=== PATIENT | female | born 1955 | race Caucasian/White ===

== ENCOUNTER 2016-04-17 06:01 | Day surgery (SDC) | payer BC ==
[~2016-04-17 06:01] MED LIST: CHLORHEXIDINE GLUC HIBICLENS 118 ML BTL TP ONE
[2016-04-17] MEDS ORDERED: LIDOCAINE 1% 5 ML SDV ID PRN (06:50)
[2016-04-17] MEDS ORDERED: LR 1,000 ML IV ONE (06:50)
[2016-04-17 07:06] LABS: ANION GAP 13 mEq/L (8-16); CALCIUM 9.5 mg/dL (8.5-10.4); CARBON DIOXIDE 28 mEq/l (22-31); CHLORIDE 104 mEq/L (97-110); CREATININE 0.9 mg/dL (0.6-1.0); GLOMERULAR FILTRATION RATE > 60; GLUCOSE 66 mg/dL (70-100); POTASSIUM 4.8 mEq/L (3.5-5.2); SODIUM 145 mEq/L (134-144)
[2016-04-17] MEDS ORDERED: BUPIVACAINE/EPI 0.25% 30 ML SDV ONE (07:08)
[2016-04-17] MEDS ORDERED: BUPIVACAINE 0.25% 30 ML SDV ONE (07:08)
[2016-04-17] MEDS ORDERED: CEFAZOLIN 2 GM/DEXTROSE/100 ML BAG IV ONE (07:08)
[2016-04-17] MEDS ORDERED: BACITRACIN 50,000 UNITS/10 ML SYR IRR ONE (07:08)
[2016-04-17] MEDS ORDERED: MIDAZOLAM 2 MG/2 ML VIAL ONE (07:17)
[2016-04-17] MEDS ORDERED: KETOROLAC 30 MG/1 ML SDV ONE (07:20)
[2016-04-17] MEDS ORDERED: DEXAMETHASONE 4 MG/ML VIAL ONE (07:20)
[2016-04-17] MEDS ORDERED: LIDOCAINE 2% 5 ML SDV ONE (07:20)
[2016-04-17] MEDS ORDERED: ONDANSETRON 4 MG/2 ML VIAL ONE (07:20)
[2016-04-17] MEDS ORDERED: fentaNYL 100 MCG/2 ML INJ ONE ×2 (07:21→09:47)
[2016-04-17] MEDS ORDERED: PROPOFOL/EMULSION 500 MG/50 ML BOTTLE IV ONE ×2 (07:21→08:20)
[2016-04-17] MEDS ORDERED: ceFAZolin 2 GM/DEXTROSE 100 ML IV ONE (07:30)
[2016-04-17] MEDS ORDERED: LABETALOL HCL 5 MG/ML 20 ML MDV ONE (08:22)
[2016-04-17] MEDS ORDERED: epHEDrine SULFATE 10 MG/ML SYR ONE (08:36)
--- NOTE | 2016-04-17 10:33 | GOP ---
[f rep st] OPERATIVE REPORT DATE OF OPERATION: 04/17/2016 SURGEON: Pierre Machuca DPM BUS BOY: None. ANESTHESIA: Local with MAC. ANESTHESIOLOGIST: Josue Black MD PREOPERATIVE DIAGNOSIS: Right midfoot arthritis. POSTOPERATIVE DIAGNOSIS: Right midfoot arthritis. PROCEDURE PERFORMED: 1. Right 1st metatarsocuneiform joint fusion. 2. Right medial and intermediate cuneiform joint fusion. FINDINGS: ESTIMATED BLOOD LOSS: Less than 10 cc. DESCRIPTION OF PROCEDURE: [facility] d for the intended procedure. Patient was taken to the operating room, placed on the table in supine position. IV sedation was started per the anesthesia department. Foot was anesthetized in infiltra tive nerve block fashion. Foot was prepped, scrubbed, and draped in usual sterile fashion. Followin g exsanguination by elevation and Esmarch bandage, pneumatic ankle tourniquet was inflated to 225 mmH g. At this time, attention was directed to the dorsal medial aspect of the right 1st metatarsal cuneifor m joint, where a curvilinear incision was made over the joint level. The incision was deepened utili zing sharp and blunt dissection, making sure that all neurovascular structures were identified and re tracted at this time. Superficial bleeders were cauterized. The incision was carried down deep to t he level of the joint capsule. At this time, a linear capsulotomy was performed. Capsular tissue wa s dissected free dorsal and plantar to allow for adequate exposure to the 1st metatarsal cuneiform hermann int. At this time, substantial osteophytes were noted around the site. These were removed with a ro ngeur. Inspection of the cartilaginous surface showed considerable degenerative arthritic changes, a nd it was decided that a fusion would be necessary. At this time, utilizing a sagittal saw, the cartilaginous surfaces from the 1st metatarsal and medial cuneiform corresponding to each other were removed. Upon completion of this, the metatarsal was re- impacted upon the remaining cuneiform and held temporarily with a K-wire fixation. C-arm fluoroscopy at this time showed good alignment with no gapping at the apparent fusion site. The area was flushe d with copious amounts of sterile saline. At this point, patient's blood pressure was slightly eleva julisa, and we needed to inflate the tourniquet up to 250 mm after approximately 10 cc of blood loss. T he area was again flushed with copious amounts of sterile saline before the Arthrex right fusion plat e was placed over the area. It was held temporarily with BB tacks. Upon completion of this, the loc bryon towers were placed into the proximal holes and drilled appropriately. 3.5 locking screws by 22 and 22 mm were placed into the areas. Upon completion of this, the interfragmentary screw was drille d appropriately. Again the area was measured at 38 mm, and a 3.5 cortical locking screw was placed t hrough the plate into the compression slot. Before the screw was completely tightened, the remaining BB tacks and the K-wire fixation were removed, and the screw was then tightened down showing excelle nt compression at the fusion site. The area was again flushed with copious amounts of sterile saline . Upon completion of this, the locking towers were placed into the 2 proximal holes of the plate as well. Again, the areas were drilled appropriately. It was decided at this point, that the intercuneiform joint would also be fused utilizing a 26 mm scr ew through the hole the compression was obtained. The final 20 mm screw was also placed. A good sta ble construct was noted. No obvious movement of the fusion sites were appreciable at this time. The area was again flushed with copious amounts of sterile saline. C-arm fluoroscopy showed excellent c ompression and alignment to the fusion site. Upon completion of this, the capsule was closed over the area utilizing 2-0 and 3-0 Vicryl, followed by subcutaneous closure with 5-0 Vicryl and skin closure with 5-0 nylon. The area was dressed with B etadine-soaked Adaptics, 4 x 4's, Tosha, and Coban. The patient was taken recovery room, vital signs stable, vascular supply intact to digits 1 through 5 bilaterally after the pneumatic ankle tournique t had been released for a total tourniquet time of 86 minutes. The patient was placed into a posteri or splint and will be kept completely nonweightbearing for the next 2-4 weeks. PATHOLOGY: None. HEMOSTASIS: PAT at 250 mmHg by 86 minutes. MATERIALS: Arthrex Lapidus plate, right. Two 3.5 locking screws by 20, 22, 22, and 26 mm. 3.5 timmy ical screw by 38 mm. INJECTABLES: 20 cc 9:1 ratio, 0.25% Marcaine plain, 0.25% Marcaine with epinephrine preoperatively. COMPLICATIONS: None. /[id number]/MODL
== END 2016-04-17 11:10 | disposition home or self-care (01) ==
LOC: FSGY 06:01
PROVIDERS: ATTEND Podiatrist Primary Podiatric Medicine
PROC: 0SGH04Z Fusion of Right Tarsal Joint with Internal Fixation Device, Open Approach (ICD-10-PCS; principal; 2016-04-17 07:15)
PROC: 0SGK04Z Fusion of Right Tarsometatarsal Joint with Internal Fixation Device, Open Approach (ICD-10-PCS; principal; 2016-04-17 07:15)
DX: M19.071 Primary osteoarthritis, right ankle and foot (principal); E10.9 Type 1 diabetes mellitus without complications; I10 Essential (primary) hypertension; K21.9 Gastro-esophageal reflux disease without esophagitis; Z96.41 Presence of insulin pump (external) (internal)
CPT/HCPCS: 28730; C1769; C1713; J0690; J1100; J1885; J2250; J2405; J2704; J3010; J3490

== ENCOUNTER → 2016-11-11 | Outpatient (CLI) | payer BC | LOC: FIMAGING 15:43 | PROVIDERS: ATTEND Family Medicine | DX: Z12.31 Encounter for screening mammogram for malignant neoplasm of breast (principal) | CPT/HCPCS: G0202 ==

== ENCOUNTER → 2017-07-08 | Outpatient (CLI) | payer BC | LOC: CIMAGING 17:23 | PROVIDERS: ATTEND Family Medicine | DX: J20.9 Acute bronchitis, unspecified (principal) | CPT/HCPCS: 71046-PO ==